=== PATIENT | female | born 1995 | race Two or more races ===

== ENCOUNTER 2025-05-07 08:13 | Outpatient (CLI) | payer BC ==
[2025-05-07 08:29] LABS: Hematocrit 39.4 % (36.0-46.0); Hemoglobin 13.2 g/dL (12.2-16.2); Mean Corpuscular Hemoglobin 31.1 pg (28.0-32.0); Mean Corpuscular Volume 93.0 fL (80.0-100.0); Nucleated Red Blood Cells % 0.1 %
[2025-05-07 08:58] LABS: Alanine Aminotransferase 17 U/L (7-40); Albumin 4.2 g/dL (3.2-4.8); Alkaline Phosphatase 57 U/L (46-116); Anion Gap 8 (5-15); BUN/Creatinine Ratio 13.9 (10.0-20.0); Bilirubin, Total 0.7 mg/dL (0.2-1.0); Blood Urea Nitrogen 11 mg/dL (9-23); Calcium 9.1 mg/dL (8.7-10.4); Carbon Dioxide 27 mmol/L (20-31); Cholesterol 195 mg/dL (< 200); Glucose 97 mg/dL (74-106); HDL Cholesterol 50 mg/dL (40-59); Potassium 4.1 mmol/L (3.5-5.1); Sodium 143 mmol/L (136-145); Total Protein 7.2 g/dL (5.7-8.2); Triglycerides 106 mg/dL (< 150)
[2025-05-07 08:59] LABS: Chloride 108 mmol/L (98-107)
[2025-05-07 11:04] LABS: Free T4 (Free Thyroxine) 1.0 ng/dL (0.89-1.76)
== END 2025-05-07 17:00 | disposition home or self-care (01) ==
LOC: LAB 08:13
PROVIDERS: ATTEND Internal Medicine
DX: Z00.00 Encounter for general adult medical examination without abnormal findings (principal)
CPT/HCPCS: 36415; 80053; 80061; 82607; 83036; 84439; 84443; 85025